=== PATIENT | female | born 1975 | race Caucasian/White ===

== ENCOUNTER 2025-03-02 19:08 | Observation (INO) | payer OTHER ==
[2025-03-02] MEDS ORDERED: NA CHLORIDE 0.9% 1,000 ML ONE (22:17)
[2025-03-02] MEDS ORDERED: ONDANSETRON 4 MG/2 ML VIAL ONE (22:17)
[2025-03-02 22:36] LABS: Absolute Basophils 0.1 K/uL (0-0.5); Absolute Eosinophils 0.2 K/uL (0-0.5); Absolute Lymphocytes (CBC) 2.8 K/uL (0.7-4.9); Absolute Monocytes 1.1 K/uL (0.1-1.3); Absolute Neutrophil 8.9 K/uL (1.8-8.0); Basophils % 0.9 % (0-1.3); Eosinophils % 1.2 % (0-4.4); Hematocrit 39.3 % (36.0-45.0); Hemoglobin 12.9 g/dL (12.0-15.0); Lymphocytes % 21.4 % (15.3-44.8); MCH 24.6 pg (27.0-35.0); MCHC 32.9 g/dL (32.0-36.0); MCV 74.8 fL (80-100); MPV 7.1 fL (7.6-11.3); Monocytes % 8.2 % (3.3-12.3); Neutrophils % 68.3 % (41.7-73.7); Nucleated Red Blood Cells % 0.3 % (0-0); Platelets 517 thou/uL (152-406); RBC Red Blood Cell Count 5.25 M/uL (3.86-4.86); Red Cell Distribution Width 16.1 % (12.1-15.2)
[2025-03-02 22:48] LABS: Albumin/Globulin Ratio 0.9 (1.1-1.8); Anion Gap 10.5 mEq/L (5.0-15.0); Bilirubin Total 0.5 mg/dL (0.2-1.0); Globulin 4.7 g/dL (2.3-3.5); Potassium 3.5 mEq/L (3.5-5.1); Protein, Total 8.7 g/dL (6.4-8.2)
--- NOTE | 2025-03-02 23:18 | RAD REPORT ---
CLINICAL HISTORY: rectal bleeding, constipation. COMPARISON: None. TECHNIQUE: CT of the abdomen and pelvis was performed following intravenous administration of iodinat ed contrast. Oral contrast was not administered. Axial, coronal, and sagittal soft tissue window reconstructions were created and sent to PACS. This exam was performed according to our departmental dose-optimization program, which includes autom ated exposure control, adjustment of the mA and/or kV according to patient size and/or use of iterative reconstruction technique. FINDINGS: Thoracic: No significant abnormality. Hepatobiliary: No concerning hepatic lesion identified. The portal veins are patent. Distended config uration of the gallbladder with no gallbladder wall thickening or surrounding inflammatory changes. No calcified stones are seen.. No biliary ductal dilatation. Pancreas: Unremarkable. Spleen: Unremarkable. Gastrointestinal: No active extravasation of contrast is identified by this technique. No evidence of bowel obstruction or perienteric inflammation. The appendix is normal. The colon and rectum appear decompressed, with a small stool burden. Adrenals: No abnormality identified in either adrenal gland. Renal: No concerning parenchymal lesion in either kidney. No hydronephrosis or urolithiasis. Bladder/Reproductive: Suboptimal evaluation of the underdistended urinary bladder by CT technique. Vascular/Lymphatics: No lymphadenopathy identified by CT size criteria. Abdominal aorta is normal in caliber. Musculoskeletal: No concerning osseous lesion identified. Fluid / peritoneum: No significant free fluid. No free intraperitoneal air identified. IMPRESSION 1. Decompressed appearance of the colon and rectum, which is nonspecific but can be seen with colit is. 2. Nonspecific distended appearance of the gallbladder. No wall thickening or surrounding inflammat ory changes. Electronically signed by: Alycia Sosa MD 03/02/2025 11:13 PM [facility] Due to temporary technical issues with the [employer]ACS[employer] reporting system, reports are being kalee d by the in-house radiologist without review as a courtesy to ensure prompt reporting the interpreting radiologist is fully responsible for the content of the report. Transcribed Date/Time: 03/02/2025 11:18 PM
[2025-03-02 23:38] LABS: White Blood Cell Scan OK (OK)
[2025-03-02 23:39] LABS: Blood Morphology Comment NOTED (NOT SEEN); Platelet Estimate ADEQ; Polychromasia 1+
[2025-03-03] MEDS ORDERED: PIPERACIL/TAZO 3.375 GM VIAL IV ONE (00:07)
[2025-03-03] MEDS ORDERED: NA CHLORIDE 0.9% 100 ML ONE (00:07)
--- NOTE | 2025-03-03 00:12 | ER ---
Nurse's Notes [facility] Name: Keke Cabello Age: 49 yrs Sex: Female : 1975 Arrival Date: 03/02/2025 Time: 19:08 Bed 4 Private MD: Diagnosis: colitis Presentation: 03/02 19:33 Chief complaint: Patient states: I am having rectal bleeding that started about a week jb4 ago. It started when I was constipated and has not stopped. Coronavirus screen: At this time, the client does not indicate any symptoms associated with coronavirus-19. Ebola Screen: No symptoms or risks identified at this time. Initial Sepsis Screen: Does the patient meet any 2 criteria? HR > 90 bpm. Yes Does the patient have a suspected source of infection? No. Patient's initial sepsis screen is negative. Risk Assessment: Do you want to hurt yourself or someone else? Patient reports no desire to harm self or others. Onset of symptoms was March 02, 2025. Transition of care: patient was not received from another setting of care. 19:33 Method Of Arrival: Ambulatory jb4 19:33 Acuity: MELITA 3 jb4 Triage Assessment: 19:35 General: Appears in no apparent distress. comfortable, Behavior is calm, cooperative, jb4 appropriate for age. Pain: Denies pain. Neuro: Level of Consciousness is awake, alert, obeys commands, Oriented to person, place, time, situation. Cardiovascular: Patient's skin is warm and dry. Respiratory: Airway is patent Respiratory effort is even, unlabored, Respiratory pattern is regular, symmetrical. GI: Abdomen is non-distended, obese, Reports rectal bleeding for the past week. Derm: Skin is intact, Skin is pink, warm \T\ dry. Musculoskeletal: Circulation, motion, and sensation intact. Range of motion: intact in all extremities. KITCHEN HAND: 19:35 LMP N/A - Going through menopause, Not jb4 Historical: - Allergies: 19:35 No Known Allergies; jb4 - Home Meds: 22:35 levothyroxine oral [Active]; bm8 - PMHx: 19:35 RA; Hypothyroidism; PE; jb4 - PSHx: 19:35 ; jb4 - Immunization history:: Adult Immunizations up to date. - Infectious Disease History:: Denies. - Social history:: Smoking status: Reported history of juuling and/or vaping. - Family history:: not pertinent. - Code Status:: Full code. Screenin:38 [facility] ED Fall Risk Assessment (Adult) History of falling in the last 3 months, jb4 including since admission No falls in past 3 months (0 pts) Confusion or Disorientation No (0 pts) Intoxicated or Sedated No (0 pts) Impaired Gait No (0 pts) Mobility Assist Device Used No (0 pt) Altered Elimination No (0 pt) Score/Fall Risk Level 0 - 2 = Low Risk Oriented to surroundings, Maintained a safe environment. Abuse screen: Denies threats or abuse. Nutritional screening: No deficits noted. Tuberculosis screening: No symptoms or risk factors identified. Assessment: 19:38 Reassessment: see triage note. jb4 22:11 General: Appears well groomed, Behavior is calm, cooperative, appropriate for age. bm8 Pain: Complains of pain in Generalized pain 3/10. Neuro: No deficits noted. Cardiovascular: Denies. Respiratory: No deficits noted. Breath sounds are clear bilaterally. GI: Bowel sounds present X 4 quads. : No deficits noted. EENT: No deficits noted. Derm: No deficits noted. 22:34 General: Appears. bm8 22:38 GI: Reports rectal bleeding, Patient c/o bright red rectal bleed x2 weeks, she is alert bm8 and oriented x3, c/o generalized pain 3/10. 03/03 00:22 Reassessment: Patient appears in no apparent distress at this time. No changes from bm8 previously documented assessment. Patient and/or family updated on plan of care and expected duration. Pain level reassessed. Patient is alert, oriented x 3, equal unlabored respirations, skin warm/dry/pink. 01:13 GI: Abd is soft and non tender. bm8 Vital Signs: 03/02 19:33 BP 141 / 109; Pulse 104; Resp 16; Temp 97.6(TE); Pulse Ox 98% on R/A; Weight 104.33 kg jb4 (R); Height 5 ft. 8 in. (R); Pain 0/10; 22:19 BP 156 / 115; Pulse 93; Resp 18; Temp 98.3; Pulse Ox 98% on R/A; Weight 104.33 kg; bm8 Height 5 ft. 8 in. ; Pain 3/10; 03/03 00:22 BP 136 / 82; Pulse 86; Resp 17; Temp 98.3; Pulse Ox 98% ; Pain 0/10; bm8 03/02 22:19 Body Mass Index 34.97 (104.33 kg, 172.72 cm) bm8 03/02 19:33 Pain Scale: Adult jb4 22:19 Pain Scale: Adult bm8 03/03 00:22 Pain Scale: Adult bm8 [place] Coma Score: 00:22 Eye Response: spontaneous(4). Motor Response: obeys commands(6). Verbal Response: bm8 oriented(5). Total: 15. ED Course: 03/02 19:11 Patient arrived in ED. jj6 19:35 Triage completed. jb4 19:35 Arm band placed on right wrist. jb4 19:38 Patient has correct armband on for positive identification. Bed in low position. Call jb4 light in reach. Side rails up X 1. Provided Education on: plan. 19:38 No provider procedures requiring assistance completed. jb4 20:02 Cesar Mtz MD is Attending Physician. rt 21:18 Radiology exam delayed due to lab results not completed at this time. (BUN/Creatinine) ag6 IV insertion attempt and/or patient not having appropriate IV at this time. 22:11 Navid Burleson, RN is Primary Nurse. bm8 22:41 CT Abd/Pelvis - IV Contrast Only In Process Unspecified. EDMS 03/03 00:10 Prince Romero MD is Hospitalizing Provider. rt 00:22 Client placed on continuous cardiac and pulse oximetry monitoring. NIBP monitoring bm8 applied. night monitor on. Pulse ox on. NIBP on. Door closed. Warm blanket given. Pillow given. Verbal reassurance given. Head of bed elevated. 00:22 Inserted saline lock: 20 gauge in left forearm, using aseptic technique. Blood bm8 collected. Flushed with 10 mL NS. 01:12 Patient admitted, IV remains in place. bm8 Administered Medications: 03/02 22:21 Drug: Ondansetron IVP 4 mg IVP once; over 2 minutes Route: IVP; Site: left forearm; bm8 03/03 01:13 Follow up: Response: No adverse reaction bm8 03/02 22:22 Drug: NS 0.9% IV 1000 ml IV at 1000 ml once; to be given as a bolus over 60 minutes bm8 Route: IV; Rate: 1000 ml; Site: left forearm; 03/03 01:13 Follow up: Response: No adverse reaction; IV Status: Completed infusion bm8 00:21 Drug: Piperacillin-Tazobactam IVPB 3.375 grams IVPB once over 60 mins; (mix in NS 100 bm8 mL) Route: IVPB; Infused Over: 60 mins; Site: left forearm; 01:12 Follow up: Response: No adverse reaction; IV Status: Completed infusion bm8 Medication: 03/02 19:38 VIS not applicable for this client. jb4 Outcome: 03/03 00:11 Decision to Hospitalize by Provider. rt 01:12 Admitted to Med/surg accompanied by nurse, via wheelchair, room 214, with chart, bm8 01:12 Condition: stable 01:12 Instructed on the need for admit, Demonstrated understanding of instructions, follow-up care, medications, 01:15 Patient left the ED. bm8 Signatures: Dispatcher [employer] EDMS Farhan Gama, RN RN jb4 Oneyda Simmons 6 Alana Hassan jj6 Cesar Mtz MD MD rt Navid Burleson RN RN bm8
--- NOTE | 2025-03-03 00:12 | EDPHYS ---
Physician Documentation [facility] Name: Keke Cabello Age: 49 yrs Sex: Female : 1975 Arrival Date: 03/02/2025 Time: 19:08 Bed 4 Private MD: ED Physician Cesar Mtz HPI: 03/03 04:51 This 49 yrs old Female presents to ER via Ambulatory with complaints of Constipation, rt Rectal Bleeding. 04:51 Patient presents to the ED with rectal bleeding for the past several days, started rt passing clots, worsening bleeding. She states this was preceded by an episode of constipation but she does not believe that she is constipated currently. Denies abdominal pain, fever, chills, the motley complaints, symptoms are moderate in severity, no other aggravating or alleviating factors.. 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 - Infectious Disease History:: Denies. - Social history:: Smoking status: Reported history of juuling and/or vaping. - Family history:: not pertinent. - Code Status:: Full code. ROS: 03/03 04:51 Constitutional: Negative for fever, chills, and weight loss, Cardiovascular: Negative rt for chest pain, palpitations, and edema, Respiratory: Negative for shortness of breath, cough, wheezing, and pleuritic chest pain, MS/Extremity: Negative for injury and deformity, Skin: Negative for injury, rash, and discoloration, Abdomen/GI: Positive for rectal bleeding, Negative for abdominal pain, Exam: 04:51 Constitutional: This is a well developed, well nourished patient who is awake, alert, rt and in no acute distress. Head/Face: Normocephalic, atraumatic. Chest/axilla: Normal chest wall appearance and motion. Nontender with no deformity. No lesions are appreciated. Cardiovascular: Regular rate and rhythm with a normal S1 and S2. No gallops, murmurs, or rubs. Normal PMI, no JVD. No pulse deficits. Respiratory: Lungs have equal breath sounds bilaterally, clear to auscultation and percussion. No rales, rhonchi or wheezes noted. No increased work of breathing, no retractions or nasal flaring. Abdomen/GI: Soft, non-tender, with normal bowel sounds. No distension or tympany. No guarding or rebound. No evidence of tenderness throughout. Skin: Warm, dry with normal turgor. Normal color with no rashes, no lesions, and no evidence of cellulitis. MS/ Extremity: Pulses equal, no cyanosis. Neurovascular intact. Full, normal range of motion. Vital Signs: 03/02 19:33 BP 141 / 109; Pulse 104; Resp 16; Temp 97.6(TE); Pulse Ox 98% on R/A; Weight 104.33 kg jb4 (R); Height 5 ft. 8 in. (R); Pain 0/10; 22:19 BP 156 / 115; Pulse 93; Resp 18; Temp 98.3; Pulse Ox 98% on R/A; Weight 104.33 kg; bm8 Height 5 ft. 8 in. ; Pain 3/10; 03/03 00:22 BP 136 / 82; Pulse 86; Resp 17; Temp 98.3; Pulse Ox 98% ; Pain 0/10; bm8 03/02 22:19 Body Mass Index 34.97 (104.33 kg, 172.72 cm) 8 03/02 19:33 Pain Scale: Adult jb4 22:19 Pain Scale: Adult bm8 03/03 00:22 Pain Scale: Adult bm8 [place] Coma Score: 00:22 Eye Response: spontaneous(4). Motor Response: obeys commands(6). Verbal Response: bm8 oriented(5). Total: 15. MDM: 03/02 21:58 Medical Screening Exam initiated rt 03/03 04:51 Differential diagnosis: Hemorrhoid, colitis, diverticulitis. Data reviewed: vital rt signs, nurses notes, lab test result(s), radiologic studies. Consideration of Admission/Observation Patient was admitted/placed on observation. Management of patient was discussed with the following: Hospitalist: Agrees to admit. Independent interpretation of the following test(s) in the Emergency Department CT Scan: My interpretation is No bowel obstruction seen on interpretation of CT scan images. Care significantly affected by the following chronic conditions: Rheumatoid arthritis. Counseling: I had a detailed discussion with the patient and/or guardian regarding the historical points, exam findings, and any diagnostic results supporting the discharge/admit diagnosis, lab results, radiology results, the need for further work-up and treatment in the hospital. Response to treatment: the patient's symptoms have mildly improved after treatment. 03/02 20:59 Order name: CBC with Diff; Complete Time: 23:43 rt 03/02 20:59 Order name: CMP; Complete Time: 23:19 rt 03/02 20:59 Order name: Lipase; Complete Time: 23:19 rt 03/02 22:40 Order name: CBC Smear Scan; Complete Time: 23:43 EDMS 03/02 22:58 Order name: CREATININE WHOLE BLOOD; Complete Time: 23:19 EDMS 03/02 23:51 Order name: Blood Culture Adult (2) rt 03/02 23:51 Order name: Lactate w/ 2H reflex if indic. rt 03/02 23:51 Order name: Protime (+inr) rt 03/02 23:51 Order name: Ptt, Activated rt 03/03 00:24 Order name: Magnesium EDMS 03/03 00:24 Order name: Phosphorus EDMS 03/03 00:24 Order name: Basic Metabolic Panel EDMS 03/03 00:24 Order name: Basic Metabolic Panel EDMS 03/03 00:24 Order name: CBC with Automated Diff EDMS 03/03 00:24 Order name: CBC with Automated Diff EDMS 03/02 20:59 Order name: CT Abd/Pelvis - IV Contrast Only rt 03/02 20:59 Order name: IV Saline Lock; Complete Time: 22:12 rt 03/02 20:59 Order name: Labs collected and sent; Complete Time: 22:12 rt 03/02 23:51 Order name: Cardiac monitoring; Complete Time: 00:22 rt 03/02 23:51 Order name: IV Saline Lock - Large Bore; Complete Time: 00:04 rt 03/02 23:51 Order name: O2 Per Protocol; Complete Time: 00:04 rt 03/02 23:51 Order name: O2 Sat Monitoring; Complete Time: 00:04 rt 03/02 23:51 Order name: Vital Signs; Complete Time: 00:04 rt Administered Medications: 03/02 22:21 Drug: Ondansetron IVP 4 mg IVP once; over 2 minutes Route: IVP; Site: left forearm; bm8 03/03 01:13 Follow up: Response: No adverse reaction 8 03/02 22:22 Drug: NS 0.9% IV 1000 ml IV at 1000 ml once; to be given as a bolus over 60 minutes bm8 Route: IV; Rate: 1000 ml; Site: left forearm; 03/03 01:13 Follow up: Response: No adverse reaction; IV Status: Completed infusion 8 00:21 Drug: Piperacillin-Tazobactam IVPB 3.375 grams IVPB once over 60 mins; (mix in NS 100 bm8 mL) Route: IVPB; Infused Over: 60 mins; Site: left forearm; 01:12 Follow up: Response: No adverse reaction; IV Status: Completed infusion Disposition Summary: 03/03/25 00:11 Hospitalization Ordered Notes: Hospitalization Status: Inpatient Admission rt Provider: Prince Heather rt Location: Telemetry/[facility] (Inpatient) rt Condition: Stable rt Problem: new rt Symptoms: are unchanged rt Bed/Room Type: Standard rt Room Assignment: 214(03/03/25 00:30) hw Diagnosis - colitis rt Forms: - Medication Reconciliation Form rt - SBAR form rt - Leadership Thank You Letter rt Signatures: Dispatcher [employer] Farhan Pollack, RN RN jb4 Cesar Mtz MD MD rt Navid Burleson RN RN bm8 Maryana Araujo Corrections: (The following items were deleted from the chart) 00:04 03/02 23:51 Accucheck ordered. rt 8 03/03 00:30 00:11 rt hw
[2025-03-03 00:18] LABS: PT Prothrombin Time 12.2 SECONDS (10-13.0); PTT, Activated Partial Thromb 31.9 SECONDS (27.2-37.4); Protime INR 1.07
[2025-03-03] MEDS ORDERED: ACETAMINOPHEN 500 MG TAB PO PRN (00:20)
[2025-03-03] MEDS ORDERED: ONDANSETRON 4 MG/2 ML VIAL IV PRN (00:20)
--- NOTE | 2025-03-03 00:30 | P.HP ---
Certification for Inpatient Patient admitted to: Observation With expected LOS: <2 Midnights Practitioner: I am a practitioner with admitting privileges, knowledge of patient current condition, hospital course, and medical plan of care. Services: Services provided to patient in accordance with Admission requirements found in Title 42 Section 412.3 of the Code of Federal Regulations Patient History Date of Service: 03/03/25 Reason for admission: gi bleeding History of Present Illness: Patient is a 49-year-old female with past medical history morbid obesity chronic rheumatoid arthritis and hypothyroidism she is presenting to the ER with an acute onset of lower GI bleeding manifested by painless bright red blood per rectum. Her bleeding is associated with and without bowel movement. She denies any signs of paler, syncope or dizziness. Patient is taking prednisone and ibuprofen 800 mg every 4 hours per day for rheumatoid arthritis to try and control her flareups. She denies any abdominal pain. Her hemoglobin is more than 12. Rest of her blood work significant for leukocytosis with WBC of 13. Patient has no history of inflammatory bowel disease. She has never had endoscopic evaluation including colonoscopy. Physical Examination - Physical Exam General: In no apparent distress, Obese HEENT: Atraumatic, Normocephalic Respiratory: Clear to auscultation bilaterally, Normal air movement Cardiovascular: No edema, Normal pulses, Regular rate/rhythm, Normal S1 S2 Gastrointestinal: Soft and benign, Non-distended, Tenderness Integumentary: Other (No paler. Good skin tone) Neurological: Normal speech - Studies Laboratory Data (last 24 hrs) 03/02/25 03/02/25 03/02/25 22:15 22:15 22:15 WBC 13.00 H Hgb 12.9 Hct 39.3 Plt Count 517 H PT 12.2 INR 1.07 APTT 31.9 Sodium 136 Potassium 3.5 BUN 16 Creatinine 1.24 H Glucose 120 H Total Bilirubin 0.5 AST 16 ALT 31 Alkaline Phosphatase 84 Lipase 19 Assessment and Plan - Problems (Diagnosis) (1) Lower GI bleed Current Visit: Yes Status: Acute (2) Rheumatoid arthritis Current Visit: Yes Status: Acute (3) Hypothyroidism Current Visit: Yes Status: Acute (4) Morbid obesity Current Visit: Yes Status: Acute - Plan Assessment This is a 49-year-old female with a history of rheumatoid arthritis currently on prednisone and NSAIDs. She is being admitted after she presented with lower GI bleeding manifested by painless bright red blood per rectum. She has a hemoglobin of more than 12. WBC is 15. Patient denies any history of endoscopic evaluation in the past. She also denies history of inflammatory eye disease. CT abdomen pelvis concerning for colitis Lower GI bleeding Rheumatoid arthritis Hypothyroidism Morbid obesity Plan: Will admit under observation IV fluid infusion Empiric antibiotic therapy due to findings of colitis on CT abdomen pelvis N.p.o. after midnight GI consult Pain control Repeat CBC tomorrow - Advance Directives Does patient have a Living Will: No Does patient have a Durable POA for Healthcare: No
[2025-03-03 01:04] LABS: Magnesium 1.9 mg/dL (1.6-2.4); Phosphorus 3.5 mg/dL (2.5-4.9)
[2025-03-03 01:28] VITALS: O2SAT 98
[2025-03-03] MEDS: NA CHLORIDE 0.9% 1,000 ML IV SCH (01:52)
[2025-03-03 03:01] VITALS: BMI 34.9
[2025-03-03 07:38] LABS: Absolute Basophils 0.1 K/uL (0-0.5); Absolute Eosinophils 0.1 K/uL (0-0.5); Absolute Lymphocytes (CBC) 1.5 K/uL (0.7-4.9); Absolute Monocytes 0.7 K/uL (0.1-1.3); Absolute Neutrophil 6.1 K/uL (1.8-8.0); Basophils % 0.9 % (0-1.3); Eosinophils % 1.5 % (0-4.4); Hematocrit 35.8 % (36.0-45.0); Hemoglobin 11.8 g/dL (12.0-15.0); Lymphocytes % 17.7 % (15.3-44.8); MCH 24.8 pg (27.0-35.0); MCHC 32.9 g/dL (32.0-36.0); MCV 75.6 fL (80-100); Monocytes % 8.5 % (3.3-12.3); Neutrophils % 71.4 % (41.7-73.7); Nucleated Red Blood Cells % 0.1 % (0-0); Platelets 425 thou/uL (152-406); RBC Red Blood Cell Count 4.74 M/uL (3.86-4.86); Red Cell Distribution Width 15.9 % (12.1-15.2)
[2025-03-03 07:55] LABS: Albumin 3.3 g/dL (3.4-5.0); Albumin/Globulin Ratio 0.8 (1.1-1.8); Anion Gap 9.9 mEq/L (5.0-15.0); Bilirubin Total 0.4 mg/dL (0.2-1.0); Globulin 4.1 g/dL (2.3-3.5); Potassium 3.9 mEq/L (3.5-5.1); Protein, Total 7.4 g/dL (6.4-8.2)
[2025-03-03] MEDS: PIPER TAZO 3.375 GM in NA CHLORIDE 0.9% 100 ML IV SCH (09:00)
--- NOTE | 2025-03-03 10:19 | P.PN ---
Date of Service: 03/03/25 Subjective: BM this morning had significantly less bloody compared to yesterday per patient has been dealing with bright red rectal bleeding on and off for ~1 week. Bleeding was preceded by constipation She reports taking ibuprofen 800 mg q4h everyday for rheumatoid arthritis chronically denies any abdominal or rectal pain never had colonoscopy Physical Exam: GEN: Alert, oriented, NAD CV: Regular rate and rhythm, no edema Pulm:Nonlabored respirations on room air, clear bilaterally ABD: soft, nontender, nondistended Neuro: Normal speech, normal affect Problem List: Rectal Bleeding Possible colitis Rheumatoid arthritis Hypothyroidism Rectal Bleeding Possible colitis on admission, presents with bright red rectal bleeding that started ~1 week ago. Rectal bleeding was preceded by bout of constipation. Denies any abdominal or rectal pain. Unclear exact etiology. Possibly secondary to internal hemorrhoids Bleeding occurs with and without bowel movements. Currently on prednisone and NSAIDs (Ibuprofen 800 mg q4h) for rheumatoid arthritis Never had colonoscopy CT abd/pelvis (03/02): Decompressed Colon and rectum, nonspecific, which can be seen with colitis. +nonspecific distended appearance of the gallbladder without surrounding wall thickening IV hydration, pain control Dr. Noel, GI consulted Trial of clears for lunch Monitor H&H add colace BID Rheumatoid arthritis Patient on chronic steroids at home for arthritis flare ups. Also reports taking chronic NSAIDs (Ibuprofen 800 mg q4h). Advised to avoid chronic NSAID use given risk of bleeding, ulcers, kidney damage Consider topical diclofenac topical cream Hypothyroidism confirm home meds VTE: Full Code: SCD given rectal bleeding Dispo: Home Pending GI recs, rectal bleeding improves, hgb remains stable Time Spent Managing Pts Care (In Minutes): 55
[2025-03-03 16:21] VITALS: BP 134/79; TEMP 97.8
[2025-03-03] MEDS ORDERED: DOCUSATE NA 100 MG CAP PO SCH (21:00)
[2025-03-04] MEDS ORDERED: LEVOTHYROXINE SOD 0.075 MG TAB PO SCH (06:00)
--- NOTE | 2025-03-04 06:44 | P.DS ---
Admission Date: 03/03/25 Discharge Date: 03/03/25 Disposition: ROUTINE DISCHARGE Discharge Condition: GOOD Reason for Admission: gi bleeding Consultations: GI - Dr. Noel Brief History of Present Illness: 49 yo F, PMH: morbid obesity chronic rheumatoid arthritis and hypothyroidism Patient is presenting to the ER with an acute onset of lower GI bleeding manifested by painless bright red blood per rectum. Her bleeding is associated with and without bowel movement. She denies any signs of paler, syncope or dizziness. Patient is taking prednisone and ibuprofen 800 mg every 4 hours per day for rheumatoid arthritis to try and control her flareups. She denies any abdominal pain. Her hemoglobin is more than 12. Rest of her blood work significant for leukocytosis with WBC of 13. Patient has no history of inflammatory bowel disease. She has never had endoscopic evaluation including colonoscopy. Hospital Course: Problem List: Rectal Bleeding secondary to internal hemorrhoids Rheumatoid arthritis Hypothyroidism Patient presented with painless bright red blood per rectum over the last several days, secondary to bleeding internal hemorrhoid. GI was consulted, recommended outpatient follow up for colonoscopy. Recommend stool softener daily and then a laxative as needed to maintain soft daily bowel movements. Avoid ibuprofen. Follow up: PCP within 3-5 days GI in near future Please call to schedule / confirm appointments Physical Exam: GEN: Alert, oriented, NAD CV: Regular rate and rhythm, no edema Pulm:Nonlabored respirations on room air, clear bilaterally ABD: soft, nontender, nondistended Neuro: Normal speech, normal affect Vital Signs/Physical Exam: Temp Pulse Resp BP Pulse Ox 97.8 F 73 20 134/79 93 03/03/25 16:00 03/03/25 16:00 03/03/25 16:00 03/03/25 16:00 03/03/25 16:00 Laboratory Data at Discharge: WBC 8.60 thou/uL (4.3-10.9) 03/03/25 07:31 Hgb 11.8 g/dL (12.0-15.0) L D 03/03/25 07:31 Hct 35.8 % (36.0-45.0) L 03/03/25 07:31 Plt Count 425 thou/uL (152-406) H 03/03/25 07:31 PT 12.2 SECONDS (10-13.0) 03/02/25 22:15 INR 1.07 03/02/25 22:15 APTT 31.9 SECONDS (27.2-37.4) 03/02/25 22:15 Sodium 140 mEq/L (136-145) 03/03/25 07:31 Potassium 3.9 mEq/L (3.5-5.1) 03/03/25 07:31 BUN 14 mg/dL (7-18) 03/03/25 07:31 Creatinine 0.95 mg/dL (0.55-1.02) 03/03/25 07:31 Glucose 111 mg/dL (74-106) H 03/03/25 07:31 Phosphorus 3.5 mg/dL (2.5-4.9) 03/03/25 00:20 Magnesium 2.0 mg/dL (1.6-2.4) 03/03/25 07:31 Total Bilirubin 0.4 mg/dL (0.2-1.0) 03/03/25 07:31 AST 19 U/L (15-37) 03/03/25 07:31 ALT 29 U/L (13-56) 03/03/25 07:31 Alkaline Phosphatase 68 U/L (45-117) 03/03/25 07:31 Lipase 19 U/L (13-75) 03/02/25 22:15 Home Medications: Docusate [Colace Cap*] 100 mg PO DAILY 30 Days #30 cap 03/03/25 Levothyroxine [Synthroid*] 150 mcg PO [id number] 03/03/25 Prednisone [Merary] 5 mg PO DAILY 03/03/25 New Medications: Docusate [Colace Cap*] 100 mg PO DAILY 30 Days #30 cap Physician Discharge Instructions: Patient presented with painless bright red blood per rectum over the last several days, secondary to bleeding internal hemorrhoid. GI was consulted, recommended outpatient follow up for colonoscopy. Recommend stool softener daily and then a laxative as needed to maintain soft daily bowel movements. Avoid ibuprofen. Follow up: PCP within 3-5 days GI Followup: Layla Cummins FNP [Primary Care Provider] - Time spent managing pt's care (in minutes): 45
--- NOTE | 2025-03-05 18:40 | CON ---
Date of Consultation: 03/03/2025 Reason For Consultation: Hematochezia. History Of Present Illness: This is a 49-year-old white female with history of rheumatoid arthritis, morbid obesity, and hypothyroidism. The patient presents to emergency room with acute onset of trini tochezia. The pain is associated with and without bowel movements. The patient has taken prednisone and ibuprofen 800 mg every 4 hours, rheumatoid arthritis, trying to control her flare ups. Hemoglob in more than 12 on admission to emergency room. White cell count is 13. She has never had endoscopi c evaluation including colonoscopy. Never had a colonoscopy. Past Medical History: Significant for rheumatoid arthritis, morbid obesity, and hypothyroidism. Medications: See list. Social History: Single, 3 kids. Vapes. No active tobacco. No alcohol. Family History: Father alive with rheumatoid arthritis. Mother with dementia and COVID-19. Review of Systems: The patient has hematochezia. She states she feels well now, energetic since admission. No hemateme sis, coffee-grounds emesis, melena, hemoptysis, hematuria dysuria, polydipsia, epistaxis. No backach e. No muscle aches, depression, anxiety, chest pain, short of breath, seizure, or syncope. Physical Examination: Vital Signs: The patient is 5 foot 8 inches, 230 pounds, BMI 35 kg/m2, and she has temperature of 98 .4 degrees Fahrenheit, pulse 70, respirations 20, blood pressure 126/67, O2 saturation 96% to 97% on room air. General: She is mildly obese female, in no acute distress. She is . HEENT: Normocephalic, atraumatic. Anicteric. Pupils equal, round, and reactive to light. Anicteri c. Oropharynx clear. Neck: Supple. No masses. Respirations: Clear to auscultation bilaterally. Heart: Regular rate and rhythm. No gallops or rubs. Abdomen: Positive bowel sounds. Soft, nontender, nondistended. No hepatosplenomegaly. Extremities: No clubbing, cyanosis, or edema. 2+ pulses. Neurologic: Alert and oriented x3, grossly nonfocal. 5/5 motor sensation intact to light touch. Laboratory Data: The patient has white count of 8.6, down from 13.0 yesterday, hemoglobin 11.8, trini tocrit 36, MCV of 76, platelet count of 425, polys of 71%, lymphocytes 18%, monocytes 9%, eosinophils 3%. PT of 12.2, INR of 1.1, PTT of 31.9. The patient has sodium 140, potassium 3.9, chloride 107, bicarb 27, BUN 14, creatinine of 0.95, glucose 111, lactate 1.2, calcium 8.5, phosphorus 3.5, magnesi um is 2.0, total bilirubin 0.4, AST of 19, ALT of 29, alkaline phosphatase 68, total protein 7.4, alb umin 3.3, lipase 19. CT of abdomen and pelvis reveals decompressed colon and rectum, which can be se en with colitis, nonspecific distended appearance of the gallbladder. No wall thickening or inflamma tory changes noted, so suspicion of colitis only. Impression: 1. Possible colitis with CT scan revealing possible colitis on scan due to infection and inflammatory bowel disease or other. The patient noted to have hematochezia, which is mild. At this point, the patient states she feels better. No more hematochezia since admission. She has had no prior colonos copy, and she feels well. 2. History of rheumatoid arthritis, morbid obesity, and hypothyroidism. Recommendations: 1. IV fluids. 2. IV antibiotics. 3. Check IBD panel. 4. Colonoscopy as outpatient. NELLA/[email or web address] Voice ID: [id number] Report ID: [id number]
== END 2025-03-03 18:17 | disposition home or self-care (01) ==
LOC: ER 19:08 → ERHOLD 03-03 00:20 → 2ND 03-03 00:59
PROVIDERS: ADMIT Internal Medicine; ATTEND Hospitalist
DX: K92.1 Melena (principal); K64.8 Other hemorrhoids; E03.9 Hypothyroidism, unspecified; E66.01 Morbid (severe) obesity due to excess calories; M06.9 Rheumatoid arthritis, unspecified; K59.00 Constipation, unspecified; Z68.35 Body mass index [BMI] 35.0-35.9, adult
CPT/HCPCS: 96365; 96361; 87040 ×2; 85025 ×2; 36415; 83735 ×2; 84100; 85610; 82565; 83605; 85730; 83690; 80053 ×2; 74177; 96375; 99285; Q9967; J2543 ×2; J2405; J7030 ×2; G0378 ×2